=== PATIENT | female | born 1955 | race African-American/Black ===

== ENCOUNTER 2021-02-06 05:42 | Inpatient (IN) ==
[2021-02-06] MEDS ORDERED: LACTATED RINGERS 1,000 ML IV SCH ×2 (06:00→07:00)
[2021-02-06] MEDS ORDERED: VANCOMYCIN INJ 1,000 MG in SODIUM CHLORIDE 0.9% 250 ML IV ONE (06:00)
[2021-02-06] MEDS ORDERED: DIAZEPAM 5 MG TABLET PO ONE (06:57)
[2021-02-06] MEDS ORDERED: GABAPENTIN 400 MG CAPSULE PO ONE (06:57)
[2021-02-06] MEDS ORDERED: ACETAMINOPHEN 500 MG TABLET PO ONE (06:57)
[2021-02-06] MEDS ORDERED: FAMOTIDINE 20 MG TABLET PO ONE (06:57)
[2021-02-06] MEDS ORDERED: LIDOCAINE 2% 5 ML VIAL ONE ×2 (07:20→07:25)
[2021-02-06] MEDS ORDERED: DEXAMETHASONE 4 MG/1 ML VIAL ONE (07:20)
[2021-02-06] MEDS ORDERED: ROPIVACAINE 0.5% 30 ML VIAL ONE (07:20)
[2021-02-06] MEDS ORDERED: BUPIVACAINE SPINAL 0.75% 2 ML AMP SPINAL ONE (07:25)
[2021-02-06] MEDS ORDERED: PHENYLEPHRINE 1 MG/10 ML SYRINGE IV ONE (07:25)
[2021-02-06] MEDS ORDERED: fentaNYL 100 MCG/2 ML VIAL ONE (07:25)
[2021-02-06] MEDS ORDERED: MIDAZOLAM 2 MG/2 ML VIAL ONE (07:25)
[2021-02-06] MEDS ORDERED: propofoL 200 MG/20 ML VIAL IV ONE ×2 (07:25→09:07)
[2021-02-06] MEDS ORDERED: ONDANSETRON 4 MG/2 ML VIAL ONE (07:25)
[2021-02-06] MEDS ORDERED: TRANEXAMIC ACID 1,000 MG/10 ML VIAL ONE (07:28)
[2021-02-06] MEDS ORDERED: TEMAZEPAM 7.5 MG CAPSULE PO PRN (08:52)
[2021-02-06] MEDS ORDERED: diphenhydrAMINE CAP 25 MG CAPSULE PO PRN (08:52)
[2021-02-06] MEDS ORDERED: PROMETHAZINE 25 MG/1 ML VIAL IM PRN (08:52)
[2021-02-06] MEDS ORDERED: MORPHINE 2 MG/1 ML SYRINGE IV PRN ×2 (08:52→08:58)
[2021-02-06] MEDS ORDERED: BISACODYL 10 MG SUPP RECTAL PRN (08:52)
[2021-02-06] MEDS ORDERED: LACTULOSE 20 GM/30 ML UDCUP PO PRN (08:52)
[2021-02-06] MEDS ORDERED: MAGNESIUM HYDROXIDE SUSP 30 ML UDCUP PO PRN (08:52)
[2021-02-06] MEDS ORDERED: hydroCHLOROthiazide 12.5 MG CAPSULE PO PRN (08:54)
[2021-02-06] MEDS ORDERED: DEXTROSE 50% 25 GM/50 ML VIAL IV PRN ×2 (08:55→15:46)
[2021-02-06] MEDS ORDERED: GLUCAGON 1 MG VIAL IM PRN ×2 (08:55→15:46)
[2021-02-06] MEDS: ASPIRIN EC 81 MG TABLET PO SCH (16:58)
[2021-02-06] MEDS: METOPROLOL TARTRATE 50 MG TABLET PO SCH (16:58)
[2021-02-06] MEDS: CELECOXIB 200 MG CAPSULE PO SCH (16:58)
[2021-02-06] MEDS: allopurinoL 100 MG TABLET PO SCH (16:58)
[2021-02-06] MEDS: INSULIN REGULAR 100 UNIT/ML SUBCUT SCH ×3 (16:58→21:01)
[2021-02-06] MEDS: ceFAZolin 2,000 MG/50 ML DUPLEX IV SCH (17:00)
[2021-02-06] MEDS: ONDANSETRON 4 MG/2 ML VIAL IV PRN (17:30)
[2021-02-06] MEDS: metFORMIN 500 MG TABLET PO SCH (18:06)
[2021-02-06] MEDS: DOCUSATE SODIUM 100 MG CAPSULE PO SCH (21:01)
[2021-02-07] MEDS: ceFAZolin 2,000 MG/50 ML DUPLEX IV SCH (01:41)
[2021-02-07 05:59] LABS: Basophils % 0.2 % (0.0-0.8); Eosinophils % 0.4 % (0.00-10.9); Hematocrit 35.8 VOL% (35.7-47.0); Hemoglobin 11.1 GM/DL (12.0-16.0); Immature Granulocytes % 0.3 %; Immature Granulocytes Absolute 0.03 #; Lymphocytes # 2.6 10*3/uL (1.4-4.0); Lymphocytes % 24.3 % (21.3-54.2); Mean Corpuscular Volume 91.3 FL (87-102); Mean Platelet Volume 10.7 FL (9.6-12.0); Monocytes % 12.4 % (1.7-12.7); Neutrophils % 62.4 % (38.7-73.9); Platelet Count 174 T/CUMM (130-400); Red Blood Count 3.92 MC/CUMM (3.8-5.5); Red Cell Distribution Width 13.7 % (9.3-17.3); White Blood Count 10.8 T/CUMM (4-12)
[2021-02-07 06:20] LABS: Calcium 8.6 MG/DL (8.5-10.1); Osmolality,Calculated 278.5 MOS/KG (273-304); Potassium 3.7 MMOL/L (3.5-5.1)
[2021-02-07 06:22] LABS: Hypochromasia Slight; Lymphocytes 26 % (20-55); Microcytosis Slight; Platelet Estimate Adequate; Segmented Neutrophils 66 % (50-85); Total Cells Counted 100
[2021-02-07] MEDS: INSULIN REGULAR 100 UNIT/ML SUBCUT SCH ×4 (08:24→20:56)
[2021-02-07] MEDS: DOCUSATE SODIUM 100 MG CAPSULE PO SCH ×2 (08:24→20:55)
[2021-02-07] MEDS: metFORMIN 500 MG TABLET PO SCH ×2 (08:24→17:55)
[2021-02-07] MEDS: LOSARTAN 50 MG TABLET PO SCH (08:25)
[2021-02-07] MEDS: ASPIRIN EC 81 MG TABLET PO SCH (08:25)
[2021-02-07] MEDS: METOPROLOL TARTRATE 50 MG TABLET PO SCH (08:25)
[2021-02-07] MEDS: CELECOXIB 200 MG CAPSULE PO SCH (08:26)
[2021-02-07] MEDS: allopurinoL 100 MG TABLET PO SCH (08:26)
[2021-02-07] MEDS ORDERED: SIMVASTATIN 20 MG TABLET PO SCH (21:00)
[2021-02-07] MEDS ORDERED: FONDAPARINUX 2.5 MG/0.5 ML SYRINGE SUBCUT SCH (21:00)
[2021-02-08] MEDS: DOCUSATE SODIUM 100 MG CAPSULE PO SCH (08:03)
[2021-02-08] MEDS: ASPIRIN EC 81 MG TABLET PO SCH (08:03)
[2021-02-08] MEDS: metFORMIN 500 MG TABLET PO SCH ×2 (08:03→17:46)
[2021-02-08] MEDS: allopurinoL 100 MG TABLET PO SCH (08:04)
[2021-02-08] MEDS: LOSARTAN 50 MG TABLET PO SCH (08:04)
[2021-02-08] MEDS: CELECOXIB 200 MG CAPSULE PO SCH (08:04)
[2021-02-08] MEDS: METOPROLOL TARTRATE 50 MG TABLET PO SCH (08:04)
[2021-02-08] MEDS: INSULIN REGULAR 100 UNIT/ML SUBCUT SCH ×3 (09:22→17:21)
[2021-02-08] MEDS: ONDANSETRON 4 MG/2 ML VIAL IV PRN (10:57)
[2021-02-08 16:37] VITALS: BP 145/77
== END 2021-02-08 18:25 | DRG 470 ==
LOC: N.OR 05:42 → N.SDSINP 05:46 → OBSVTOIN 08:52 → N.SDSINP 08:52 → INTOOBSV 08:52 → N.3E 15:09
PROVIDERS: ADMIT Orthopaedic Surgery; ATTEND Orthopaedic Surgery